=== PATIENT | female | born 1995 ===

== ENCOUNTER 2024-08-30 10:44 | Outpatient (CLI) | payer OTHER | END 2024-08-30 10:45 | disposition home or self-care (01) | LOC: PRENATAL 10:44 | PROVIDERS: ATTEND Obstetrics & Gynecology Maternal & Fetal Medicine | DX: O36.80X0 Pregnancy with inconclusive fetal viability, not applicable or unspecified (principal); Z36.82 Encounter for antenatal screening for nuchal translucency; Z14.8 Genetic carrier of other disease; Z3A.12 12 weeks gestation of pregnancy ==

== ENCOUNTER 2024-10-25 07:48 | Outpatient (CLI) | payer OTHER | END 2024-10-25 07:49 | disposition home or self-care (01) | LOC: PRENATAL 07:48 | PROVIDERS: ATTEND Obstetrics & Gynecology | DX: O44.00 Complete placenta previa NOS or without hemorrhage, unspecified trimester (principal); Z3A.20 20 weeks gestation of pregnancy ==

== ENCOUNTER 2025-01-17 09:33 | Outpatient (CLI) | payer OTHER | END 2025-01-17 09:34 | disposition home or self-care (01) | LOC: PRENATAL 09:33 | PROVIDERS: ATTEND Obstetrics & Gynecology Maternal & Fetal Medicine | DX: O26.849 Uterine size-date discrepancy, unspecified trimester (principal); O36.8130 Decreased fetal movements, third trimester, not applicable or unspecified; Z3A.32 32 weeks gestation of pregnancy ==

== ENCOUNTER 2025-03-02 13:30 | Inpatient (IN) | payer OTHER ==
[~2025-03-02] VITALS: Ht 162.6 cm; Wt 97.5 kg
[2025-03-13] MEDS ORDERED: AMPICILLIN SODIUM 2,000 MG VIAL IV ONE (08:00)
[2025-03-13] MEDS ORDERED: RINGERS SOLUTION,LACTATED 1,000 ML IV SCH (08:00)
[2025-03-13 08:27] VITALS: BP 116/61
[2025-03-13] MEDS ORDERED: OXYTOCIN 500 ML IV SCH (09:00)
[2025-03-13] MEDS ORDERED: MORPHINE SULFATE 4 MG/ML VIAL IV ONE (09:00)
[2025-03-13] MEDS ORDERED: PROBIOTIC1 EAC7 PO (09:30)
[2025-03-13] MEDS ORDERED: PRENATAL TABLE1 EAC1 PO (09:30)
[2025-03-13 09:33] LABS: BASO % 0.4 % (0.1-1.2); EOS # 0.38 (0.04-0.54); EOS % 2.8 % (0.7-7.0); LYMPH # 2.05 (1.18-3.74); LYMPH % 14.9 % (19.3-53.1); MEAN PLATELET VOLUME 10.80 fl (9.4-12.4); MONO # 0.72 (0.24-0.82); MONO % 5.2 % (4.7-12.5); NEUT # 10.40 (1.56-6.13); NEUT % 75.6 % (34.0-71.1); RED CELL DISTRIBUTION WIDTH 13.0 % (11.6-14.4)
[2025-03-13 09:44] LABS: URINE APPEARANCE Clear; URINE BILIRRUBIN Negative (NEGATIVE); URINE BLOOD Negative; URINE COLOR Yellow; URINE GLUCOSE Negative (NEGATIVE); URINE KETONE Negative (NEGATIVE); URINE LEUKOCYTE Negative; URINE NITRATE Negative; URINE PROTEIN Negative (NEGATIVE); URINE UROBILINOGEN 0.2 E.U./dl
[2025-03-13 09:47] LABS: URINE BACTERIA 133.1 uL (0.0-1933); URINE EPITHELIAL CELLS 3.2 uL (0.0-38.8); URINE WBC 11.8 uL (0.0-23.2)
[2025-03-13 10:00] LABS: URINE CAST 0.29 uL (0.0-1.40); URINE RBC 1.9 uL (0.0-20.8)
[2025-03-13 10:12] LABS: INR < 0.93
[2025-03-13 11:23] VITALS: BP 129/73
[2025-03-13] MEDS ORDERED: AMPICILLIN SODIUM 1,000 MG VIAL IV SCH ×2 (12:00→13:00)
[2025-03-13] MEDS ORDERED: LIDOCAINE HCL 1% 10ML VIAL ONE (15:31)
[2025-03-13] MEDS ORDERED: CHLORHEXIDINE GLUCONATE 120 ML BOTTLE TOP ONE (15:31)
[2025-03-13] MEDS ORDERED: OXYTOCIN 20 UNITS/1000ML RL PIGGYBAG IV ONE (15:31)
[2025-03-13] MEDS ORDERED: ERYTHROMYCIN BASE OPHT 1GM EACH TUBE OP ONE (15:31)
[2025-03-13 15:39] VITALS: BP 101/71
[2025-03-13 16:24] VITALS: BP 134/69
[2025-03-13 16:40] VITALS: BP 135/76
[2025-03-13] MEDS ORDERED: OXYTOCIN 20 UNITS/1000ML RL PIGGYBAG IV SCH (18:00)
[2025-03-13 18:30] VITALS: BP 122/80
[2025-03-14 00:57] VITALS: BP 116/79
[2025-03-14 06:52] LABS: BASO % 0.3 % (0.1-1.2); EOS # 0.13 (0.04-0.54); EOS % 0.7 % (0.7-7.0); LYMPH # 2.03 (1.18-3.74); LYMPH % 11.0 % (19.3-53.1); MEAN PLATELET VOLUME 11.00 fl (9.4-12.4); MONO # 1.37 (0.24-0.82); MONO % 7.4 % (4.7-12.5); NEUT # 14.76 (1.56-6.13); NEUT % 80.0 % (34.0-71.1); RED CELL DISTRIBUTION WIDTH 12.9 % (11.6-14.4)
[2025-03-14] MEDS ORDERED: PNV,CALCIUM 72/IRON/FOLIC ACID 1 TAB TABLET PO SCH (09:00)
[2025-03-14 09:30] VITALS: BP 114/78
[2025-03-14 16:00] VITALS: BP 134/80
[2025-03-15 00:13] VITALS: BP 133/80
[2025-03-15 08:00] VITALS: BP 137/77
== END 2025-03-15 14:19 | disposition home or self-care (01) | DRG 807 ==
LOC: OB/GYN 03-10 13:30 → LDR 03-13 07:34 → OB/GYN 03-13 17:14
PROVIDERS: ADMIT Obstetrics & Gynecology; ATTEND Obstetrics & Gynecology
PROC: 10E0XZZ Delivery of Products of Conception, External Approach (ICD-10-PCS; principal; 2025-03-13)
PROC: 0UQG7ZZ Repair Vagina, Via Natural or Artificial Opening (ICD-10-PCS; 2025-03-13)
PROC: 4A1HXCZ Monitoring of Products of Conception, Cardiac Rate, External Approach (ICD-10-PCS; 2025-03-13)
DX: O71.4 Obstetric high vaginal laceration alone (principal); Z37.0 Single live birth; Z3A.40 40 weeks gestation of pregnancy